=== PATIENT | female | born 1960 | race Caucasian/White ===

== ENCOUNTER 2017-06-27 14:54 | Emergency (ER) | payer OTHER ==
[~2017-06-27] VITALS: Ht 157.5 cm; Wt 93.2 kg
[2017-06-27] MEDS ORDERED: ASPI-1182 PO (15:04)
[2017-06-27] MEDS ORDERED: OMEP10 PO (15:04)
[2017-06-27] MEDS ORDERED: IBUP-2071 PO (15:04)
[2017-06-27] MEDS ORDERED: METO25 PO (15:04)
[2017-06-27] MEDS ORDERED: KETOROLAC TROMETHAMINE 10 MG TABLET PO ONE (16:00)
[2017-06-27 17:14] VITALS: BP 124/74
== END 2017-06-27 17:16 | disposition home or self-care (01) ==
LOC: EMS 14:56
DX: S83.91XA Sprain of unspecified site of right knee, initial encounter (principal); I10 Essential (primary) hypertension; K21.9 Gastro-esophageal reflux disease without esophagitis; Z79.82 Long term (current) use of aspirin; Z88.1 Allergy status to other antibiotic agents; Z79.899 Other long term (current) drug therapy; X58.XXXA Exposure to other specified factors, initial encounter; Y93.E9 Activity, other interior property and clothing maintenance; Y92.69 Other specified industrial and construction area as the place of occurrence of the external cause; Y99.0 Civilian activity done for income or pay
CPT/HCPCS: 99284